=== PATIENT | female | born 1970 | race African-American/Black ===

== ENCOUNTER 2017-08-18 11:08 | Inpatient (IN) | payer MEDICARE ==
[~2017-08-18] VITALS: Ht 157.5 cm; Wt 145.1 kg
[2017-08-18] MEDS ORDERED: FUROSEMIDE 20MG/2ML VIAL IVP ONE (11:45)
[2017-08-18 12:11] LABS: CHLORIDE 109 mEq/L (98-107)
[2017-08-18 12:13] LABS: PROTHROMBIN TIME 10.2 sec (9.4-11.6)
[2017-08-18 12:15] LABS: BASOPHILS % 0.9 % (0.0-2.0); EOSINOPHILS % 3.2 % (0.0-5.0); HEMATOCRIT. 34.5 % (36.0-48.0); HEMOGLOBIN. 11.3 g/dL (12.0-16.0); LYMPHOCYTES % 15.9 % (20.0-50.0); MEAN CORPUSCULAR HEMOGLOBIN 30.6 pg (28.0-32.0); MEAN CORPUSCULAR VOLUME 93.2 fL (81.0-99.0); MEAN PLATELET VOLUME 8.5 fl (7.4-10.4); MONOCYTES % 6.1 % (2.0-8.0); NEUTROPHILS % 73.9 % (40.0-76.0); PLATELET 248 x1000/uL (130-400); RED BLOOD CELL COUNT 3.71 mill/uL (4.2-5.4); RED CELL DISTRIBUTION WIDTH 15.3 % (11.6-14.6)
[2017-08-18] MEDS ORDERED: NA PHOS,M-B/NA PHOS,DI-BA ENEMA 118ML PR PRN (17:30)
[2017-08-18] MEDS ORDERED: GUAIFENESIN 200MG/10ML SUGAR FREE UDC PO PRN (17:30)
[2017-08-18] MEDS ORDERED: ONDANSETRON HCL 4MG/2ML VIAL IV PRN (17:30)
[2017-08-18] MEDS ORDERED: CLONIDINE 0.1MG TABLET PO PRN (17:30)
[2017-08-18] MEDS ORDERED: ACETAMINOPHEN 325MG TABLET PO PRN (17:30)
[2017-08-18] MEDS ORDERED: DIPHENHYDRAMINE 50MG/ML VIAL IV PRN (17:30)
[2017-08-18] MEDS ORDERED: HYDROCODONE/ACETAMINOPHEN 5/325MG TABLET PO PRN (17:30)
[2017-08-18] MEDS ORDERED: DOCUSATE SODIUM 100MG CAPSULE PO PRN (17:30)
[2017-08-18] MEDS ORDERED: IPRATROPIUM/ALBUTEROL 0.5-3(2.5)MG/3ML NEB INH PRN (17:30)
[2017-08-18 18:54] VITALS: BP 125/68
[2017-08-18 20:00] VITALS: BP 155/58
[2017-08-18] MEDS ORDERED: ALTEPLASE 2MG/VIAL ITC NR ×2 (21:15→22:00)
[2017-08-18 22:00] VITALS: BP 142/66
[2017-08-19] VITALS (10 sets, daily range): BP systolic 127–193; BP diastolic 62–120
[2017-08-19 06:41] LABS: BASOPHILS % 0.8 % (0.0-2.0); EOSINOPHILS % 4.5 % (0.0-5.0); HEMATOCRIT. 33.1 % (36.0-48.0); HEMOGLOBIN. 10.7 g/dL (12.0-16.0); LYMPHOCYTES % 22.3 % (20.0-50.0); MEAN CORPUSCULAR HEMOGLOBIN 30.9 pg (28.0-32.0); MEAN CORPUSCULAR VOLUME 95.6 fL (81.0-99.0); MEAN PLATELET VOLUME 9.4 fl (7.4-10.4); MONOCYTES % 5.3 % (2.0-8.0); NEUTROPHILS % 67.1 % (40.0-76.0); PLATELET 154 x1000/uL (130-400); RED BLOOD CELL COUNT 3.46 mill/uL (4.2-5.4); RED CELL DISTRIBUTION WIDTH 15.5 % (11.6-14.6)
[2017-08-19 07:02] LABS: CHLORIDE 112 mEq/L (98-107)
[2017-08-19] MEDS: AMLODIPINE 10MG TABLET PO SCH ×2 (09:00→09:04)
[2017-08-19] MEDS: ASPIRIN 81MG EC TABLET PO SCH ×2 (09:00→09:04)
[2017-08-19 10:38] LABS: HEPATITIS B SURFACE AB < 3.1 mIU/mL
[2017-08-19 10:48] LABS: HEPATITIS B SURFACE ANTIGEN NEGATIVE
[2017-08-19 11:16] LABS: HEPATITIS B CORE AB IGM NEGATIVE
[2017-08-19 11:18] LABS: HEPATITIS A AB IGM NEGATIVE (NEGATIVE)
[2017-08-20] VITALS (7 sets, daily range): BP systolic 137–179; BP diastolic 72–91
[2017-08-20] MEDS: CLONIDINE 0.1MG TABLET PO SCH ×2 (06:00→08:56)
[2017-08-20] MEDS: ATENOLOL 25MG TABLET PO SCH (08:40)
[2017-08-20 17:06] LABS: BARBITURATE SCREEN Negative ug/mL (Cutoff:0.1); BENZODIAZEPINE SCREEN Negative ng/mL (Cutoff:20); OPIATES SCREEN Negative ng/mL (Cutoff:5); PHENCYCLIDINE SCREEN Negative ng/mL (Cutoff:8)
[2017-08-21] MEDS: CLONIDINE 0.1MG TABLET PO SCH ×3 (05:59→21:49)
[2017-08-21 06:52] LABS: BASOPHILS % 0.7 % (0.0-2.0); EOSINOPHILS % 3.9 % (0.0-5.0); HEMATOCRIT. 28.6 % (36.0-48.0); HEMOGLOBIN. 9.7 g/dL (12.0-16.0); LYMPHOCYTES % 31.5 % (20.0-50.0); MEAN CORPUSCULAR HEMOGLOBIN 31.2 pg (28.0-32.0); MEAN CORPUSCULAR VOLUME 91.7 fL (81.0-99.0); MEAN PLATELET VOLUME 8.8 fl (7.4-10.4); MONOCYTES % 7.6 % (2.0-8.0); NEUTROPHILS % 56.3 % (40.0-76.0); PLATELET 184 x1000/uL (130-400); RED BLOOD CELL COUNT 3.12 mill/uL (4.2-5.4); RED CELL DISTRIBUTION WIDTH 14.8 % (11.6-14.6)
[2017-08-21 08:00] VITALS: BP 179/86
[2017-08-21] MEDS: ATENOLOL 25MG TABLET PO SCH (08:58)
[2017-08-21] MEDS: ASPIRIN 81MG EC TABLET PO SCH (08:58)
[2017-08-21 12:00] VITALS: BP 176/91
[2017-08-21 16:00] VITALS: BP 142/84
[2017-08-21 20:00] VITALS: BP 151/78
[2017-08-22] VITALS: BP 140/72
[2017-08-22 04:00] VITALS: BP 144/72
[2017-08-22] MEDS: CLONIDINE 0.1MG TABLET PO SCH (05:55)
[2017-08-22 09:57] LABS: BASOPHILS % 0.9 % (0.0-2.0); EOSINOPHILS % 3.3 % (0.0-5.0); HEMATOCRIT. 30.5 % (36.0-48.0); HEMOGLOBIN. 10.1 g/dL (12.0-16.0); LYMPHOCYTES % 24.6 % (20.0-50.0); MEAN CORPUSCULAR HEMOGLOBIN 30.8 pg (28.0-32.0); MEAN CORPUSCULAR VOLUME 92.6 fL (81.0-99.0); MEAN PLATELET VOLUME 8.8 fl (7.4-10.4); MONOCYTES % 7.7 % (2.0-8.0); NEUTROPHILS % 63.5 % (40.0-76.0); PLATELET 164 x1000/uL (130-400); RED BLOOD CELL COUNT 3.29 mill/uL (4.2-5.4); RED CELL DISTRIBUTION WIDTH 14.9 % (11.6-14.6)
[2017-08-22 10:24] VITALS: BP 187/114
[2017-08-22] MEDS: ATENOLOL 25MG TABLET PO SCH (10:26)
[2017-08-22] MEDS: ASPIRIN 81MG EC TABLET PO SCH (10:26)
[2017-08-22 11:28] VITALS: BP 158/74
[2017-08-22 12:31] VITALS: BP 158/85
== END 2017-08-22 12:45 | disposition home or self-care (01) | DRG 291 ==
LOC: ER 11:08 → 5EST 12:49 → EDBEDREQ 12:51 → ENRESERV 13:59
PROVIDERS: ADMIT Hospitalist; ATTEND Hospitalist
PROC: 5A1D70Z Performance of Urinary Filtration, Intermittent, Less than 6 Hours Per Day (ICD-10-PCS; 2017-08-18)
PROC: 5A1D70Z Performance of Urinary Filtration, Intermittent, Less than 6 Hours Per Day (ICD-10-PCS; principal; 2017-08-20)
DX: I13.2 Hypertensive heart and chronic kidney disease with heart failure and with stage 5 chronic kidney disease, or end stage renal disease (principal); I50.33 Acute on chronic diastolic (congestive) heart failure; N18.6 End stage renal disease; H33.23 Serous retinal detachment, bilateral; E87.5 Hyperkalemia; E83.51 Hypocalcemia; E11.65 Type 2 diabetes mellitus with hyperglycemia; E11.22 Type 2 diabetes mellitus with diabetic chronic kidney disease; E88.09 Other disorders of plasma-protein metabolism, not elsewhere classified; R26.81 Unsteadiness on feet; D64.9 Anemia, unspecified; H54.7 Unspecified visual loss; Z99.2 Dependence on renal dialysis; Z91.15 Patient's noncompliance with renal dialysis
CPT/HCPCS: 36415; 71045; 80048; 80053; 80307; 83036; 83880; 84484; 85025; 85610; 86705; 86706; 86709; 86803; 87340; 93005; 96374; 99285; J1940; J2997; J7030